=== PATIENT | male | born 1945 | race Caucasian/White ===

== ENCOUNTER 2019-05-10 09:58 | Observation (INO) | payer MEDICARE, OTHER ==
[~2019-05-10] VITALS: Ht 175.3 cm; Wt 80.7 kg
[2019-05-10] MEDS ORDERED: JANUVIA50 MG PO (10:38)
[2019-05-10] MEDS ORDERED: LISINOPRIL-HCT1 EACH PO (10:38)
[2019-05-10] MEDS ORDERED: HUMIRA40 MG/0.8 SUB-Q (10:39)
[2019-05-10] MEDS ORDERED: GLUCOPHAGE500 MG PO (10:39)
--- NOTE | 2019-05-10 17:00 | NUR ---
PT RECEIVED FROM ED. VSS. PT DENIES PAIN. PT ON ROOM AIR, LUNG SOUNDS CLEAR. BOWEL TONES ACTIVE, DENIES NAUSEA, ASSSISTED TO ORDER DINNER. PT WITHOUT EDEMA, CMS INTACT. PT WITH IV TO RIGHT FOREARM, SALINE LOCKED. ADMISSION INTAKE COMPLETED. DISCUSSED PLAN OF CARE AND ORIENTED TO ROOM. PT DENIES OTHER NEEDS AT THIS TIME.
[2019-05-10] MEDS ORDERED: CLOBEX118 ML TOP (17:08)
--- NOTE | 2019-05-10 17:20 | NUR ---
LR BOLUS AND FLAGYL INFUSION BEGAN PER ORDER. PT EATING DINNER. SS HUMALOG HELD FOR BLOOD GLUCOSE 89. PT DENIES OTHER NEEDS AT THIS TIME.
--- NOTE | 2019-05-10 18:56 | NUR ---
DR. DAUGHERTY NOTIFIED OF HYPOTENSION, BP 98/52, HR 81, NO NEW ORDERS.
--- NOTE | 2019-05-10 19:55 | NUR ---
up to br, voided, had a md soft bm, tolerated well, No c/o pain, Coop with assessment, IVF infusing RAC. call light at bedside, tolerating fluids well
--- NOTE | 2019-05-10 22:21 | NUR ---
FLAP PRESSER ROUNDING NOTE. PT RESTING WITH EYES CLOSED. APPEARS TO BE SLEEPING. CALL LIGHT IN REACH. WHITE BOARD UPDATED.
--- NOTE | 2019-05-11 01:51 | NUR ---
awake, coop with vitals, no c/o pain or abd pain. IVF infusing, using urinal, voiding dark yellow urine. tolerating fluids, call light at bedside
--- NOTE | 2019-05-11 03:23 | NUR ---
AWAKE, UP TO BSC, VOIDED, HAD SMALL FORMED SOFT BM. BACK TO BED. CALL LIGHT ND FLUIDS AT BEDSIDE
--- NOTE | 2019-05-11 05:18 | NUR ---
AWAKES EASILY, PT TO GET ORTHOSTATHIC BPS BID. NO C/O N/V, NO C/O PAIN ATHIS TIME. GETS UP W 1PA, IVF INFUSING W/O PROBLEMS, DENIES ADVERSE REACTION TO IV ABX. TOLERATING DIET WELL. HAS HAD SMALL BM.
--- NOTE | 2019-05-11 06:25 | NUR ---
Up to br, voided dark yellow urine, had small formed bm. no c/o n/v or pain.
--- NOTE | 2019-05-11 10:11 | NUR ---
PT RESTING IN SEMIFOWLERS POSITION IN BED WATCHING TV. ASSESSMENT COMPLETED, CALL LIGHT AND H2O IN REACH. PT STATES "I DID WELL ON THAT WALK EARLIER AND I FEEL I AM READY TO GO". PT DENIES FURTHER NEEDS/CONCERNS.
[2019-05-11] MEDS ORDERED: CIPROFLOXACIN500 MG PO (10:30)
[2019-05-11] MEDS ORDERED: METRONIDAZOLE500 MG PO (10:30)
== END 2019-05-11 12:00 | disposition home or self-care (01) ==
LOC: ED 09:58 → MS 10:01
PROVIDERS: ADMIT Internal Medicine
DX: N17.9 Acute kidney failure, unspecified (principal); I10 Essential (primary) hypertension; E11.9 Type 2 diabetes mellitus without complications; K50.918 Crohn's disease, unspecified, with other complication; D64.9 Anemia, unspecified; T46.4X5A Adverse effect of angiotensin-converting-enzyme inhibitors, initial encounter; T50.2X5A Adverse effect of carbonic-anhydrase inhibitors, benzothiadiazides and other diuretics, initial encounter; Z85.038 Personal history of other malignant neoplasm of large intestine; Z79.84 Long term (current) use of oral hypoglycemic drugs; Z79.899 Other long term (current) drug therapy
CPT/HCPCS: 36415; 80053; 81001; 82570; 82607; 82728; 82746; 83540; 84300; 84466; 84540; 85025; 85045; 96360; 96361; 96365; 96366; 96368; 96375; 99285-25; G0378; J0744; J7040; J7120